=== PATIENT | female | born 1995 | race Caucasian/White ===

== ENCOUNTER 2016-09-04 10:59 | Emergency (ER) | payer BC ==
[2016-09-04] MEDS ORDERED: L.E.T. 3 ML SOLUTION TOPICAL ONE (11:28)
[2016-09-04] MEDS ORDERED: TDaP 0.5 ML VIAL IM.VACC ONE (11:29)
[2016-09-04] MEDS ORDERED: ONDANSETRON 4 MG VIAL ONE (20:40)
== END 2016-09-04 12:47 | disposition home or self-care (01) ==
LOC: FASTR 10:59
DX: S61.011A Laceration without foreign body of right thumb without damage to nail, initial encounter (principal); W25.XXXA Contact with sharp glass, initial encounter; Y92.009 Unspecified place in unspecified non-institutional (private) residence as the place of occurrence of the external cause; Z23 Encounter for immunization
CPT/HCPCS: 90471